=== PATIENT | female | born 1940 | race Two or more races ===

== ENCOUNTER 2017-04-06 05:23 | Observation (INO) | payer MEDICAID ==
[~2017-04-06] VITALS: Ht 170.2 cm; Wt 68.0 kg
[2017-04-06 06:19] LABS: Basophils # (auto) 0 uL; Basophils % (auto) 0.4 % (0.0-2.0); DEFINITIVE VIEW TRANSMISSION; Eosinophils # (auto) 0.2 uL; Eosinophils % (auto) 2.8 % (0.0-7.0); Hematocrit 39.3 % (36.0-46.0); Hemoglobin 13.3 g/dL (12.2-16.2); Lymphocytes # (auto) 1.3 uL; Lymphocytes % (auto) 16.1 % (10.0-50.0); Mean Corpuscular Hemoglobin 26.2 pg (28.0-32.0); Mean Corpuscular Hgb Conc. 33.8 g/dL (32.0-36.0); Mean Corpuscular Volume 77.6 fL (80.0-100.0); Mean Platelet Volume 8.6 fL (7.4-10.4); Monocytes # (auto) 0.3 uL; Monocytes % (auto) 4.1 % (0.0-12.0); Neutrophils % (auto) 76.6 % (37.0-80.0); Platelet Count (auto) 313 10^3/uL (140-450); Red Cell Distribution Width 15.1 % (11.6-16.0); White Blood Cell 7.8 10^3/uL (4.4-10.8)
[2017-04-06 06:39] LABS: Albumin 4.2 g/dL (3.4-5.0); Anion Gap 10 (5-15); BUN/Creatinine Ratio 21.3; Blood Urea Nitrogen 30 mg/dL (7-18); Calcium 9.5 mg/dL (8.5-10.1); Carbon Dioxide 25 mmol/L (21-32); Chloride 102 mmol/L (98-107); GFR African American 47 mL/min; GFR Non-African American 38 mL/min; Glucose 201 mg/dL (74-106); Magnesium 1.7 mg/dL (1.6-2.6); Potassium 3.2 mmol/L (3.5-5.1); Sodium 137 mmol/L (136-145)
[2017-04-06 06:44] LABS: Alkaline Phosphatase 130 U/L (45-117); Aspartate Aminotransferase 18 U/L (15-37); Bilirubin, Total 0.4 mg/dL (0.2-1.0); Total Protein 7.9 g/dL (6.4-8.2)
[2017-04-06] MEDS ORDERED: SODIUM CHLORIDE 0.9% 1,000 ML IV ONE (08:50)
[2017-04-06] MEDS ORDERED: LORazepam 2MG/ML-1ML VIAL IV ONE (09:00)
[2017-04-06 09:52] LABS: Urine RBC None Seen /hpf (0 - 4)
[2017-04-06 10:14] LABS: Urine Bilirubin Negative (Negative); Urine Blood Negative /uL (Negative); Urine Color Yellow (Yellow); Urine Ketone Negative (Negative); Urine Nitrite Negative (Negative); Urine Squamous Epithelial Cell FEW /hpf (<5); Urine Urobilinogen Normal (Negative); Urine pH 6.5 (5.0-8.0)
[2017-04-06 10:15] LABS: Urine Glucose 1+ mg/dL (Normal)
[2017-04-06] MEDS ORDERED: LORA-622 PO (12:03)
[2017-04-06] MEDS ORDERED: ACETTAB85 PO (12:03)
[2017-04-06] MEDS ORDERED: PANT40TA2 PO (12:03)
[2017-04-06] MEDS ORDERED: ATOR20TA PO (12:04)
[2017-04-06] MEDS ORDERED: LEVO50TA7 PO (12:05)
[2017-04-06] MEDS ORDERED: AMLO5TAB2 PO (12:05)
[2017-04-06] MEDS ORDERED: MULTCAP45 PO (12:07)
[2017-04-06] MEDS ORDERED: LISI10TA6 PO (12:07)
[2017-04-06] MEDS ORDERED: SIME80CH6 PO (12:07)
[2017-04-06] MEDS ORDERED: ASPI81TA27 PO (12:08)
[2017-04-06] MEDS ORDERED: ATEN50TA PO (12:08)
[2017-04-06] MEDS ORDERED: GLIP-115 PO (12:11)
[2017-04-06] MEDS ORDERED: INSULIN (12:13)
[2017-04-06] MEDS ORDERED: POTASSIUM CHL 10% (20 MEQ/15ML) ORAL SOLN PO ONE (12:15)
[2017-04-06] MEDS ORDERED: DEXTROSE (50%) 50ML SYRG IV PRN (14:00)
[2017-04-06 15:40] VITALS: BP 159/108
[2017-04-06] MEDS ORDERED: InsuLIN REG 1unit/0.01ml Soln (100units/ml) SC SCH (17:00)
[2017-04-06] MEDS ORDERED: ACCU-CHEK COMFORT CURVE STRIP VI SCH (17:00)
== END 2017-04-06 18:03 | disposition home or self-care (01) | DRG 756 ==
LOC: ER 05:23 → OVERFLOW 08:55
PROVIDERS: ADMIT Emergency Medicine; ATTEND Emergency Medicine
DX: F41.9 Anxiety disorder, unspecified (principal)
CPT/HCPCS: 36415; 80053; 80307; 80320; 80329; 81001; 82962; 83605; 83735; 84484; 85025; 93005; 96361; 96372; 96374; 99285; G0378; J1815; J2060